=== PATIENT | male | born 1975 | race Caucasian/White ===

== ENCOUNTER 2020-05-05 20:36 | Emergency (ER) | payer OTHER ==
[~2020-05-05] VITALS: Ht 177.8 cm; Wt 125.0 kg
--- NOTE | 2020-05-05 22:01 | NUR ---
Provider is with the patient at this time.
[2020-05-05] MEDS ORDERED: ketorolac tromethamine 15mg/ml inj. IM ONE (22:10)
[2020-05-05] MEDS ORDERED: diazepam 5mg tablet PO ONE (22:10)
[2020-05-05] MEDS ORDERED: METH-360 PO (22:11)
[2020-05-05] MEDS ORDERED: NAPR-56 PO (22:11)
[2020-05-05 22:24] VITALS: BP 172/90
== END 2020-05-05 22:25 | disposition home or self-care (01) ==
LOC: ER 20:37
DX: S40.012A Contusion of left shoulder, initial encounter (principal); R07.89 Other chest pain; M25.512 Pain in left shoulder; M79.601 Pain in right arm; I10 Essential (primary) hypertension; Z79.899 Other long term (current) drug therapy; V89.2XXA Person injured in unspecified motor-vehicle accident, traffic, initial encounter; Y93.89 Activity, other specified; Y92.89 Other specified places as the place of occurrence of the external cause; Y99.8 Other external cause status
CPT/HCPCS: 96372; 99283; J1885